=== PATIENT | male | born 1960 | race Caucasian/White ===

== ENCOUNTER → 2017-11-08 | Outpatient (CLI) | payer BC | END | disposition home or self-care (01) | LOC: PCVCIMAG 09:08 | DX: I08.1 Rheumatic disorders of both mitral and tricuspid valves (principal); I42.0 Dilated cardiomyopathy; Z79.899 Other long term (current) drug therapy | CPT/HCPCS: 36415; 93306 ==

== ENCOUNTER → 2018-03-22 | Outpatient (CLI) | payer BC ==
--- NOTE | 2018-03-22 22:29 | PCVCIMAG ---
EXAM: VENOUS DUPLEX LEFT UPPER EXTREMITY INDICATION: Arm pain and swelling. FINDINGS: Left arm: Occlusive thrombus in the basilic vein from the level of the elbow to the wrist. No thrombus in the cephalic, brachial, axillary, or subclavian veins. These veins show phasic flow. IMPRESSION: No evidence of deep venous thrombosis in the left upper extremity as detailed above. Occlusive thrombus is seen in the basilic vein from the level of the elbow through the wrist. Interval follow-up is suggested. LOC:OFFICE
== END | disposition home or self-care (01) ==
LOC: PCVCIMAG 16:26
PROVIDERS: ATTEND Internal Medicine Cardiovascular Disease
DX: M79.89 Other specified soft tissue disorders (principal); M79.602 Pain in left arm
CPT/HCPCS: 93971

== ENCOUNTER → 2018-08-15 | Outpatient (CLI) | payer BC ==
--- NOTE | 2018-08-15 10:04 | PCVCIMAG ---
APPROVED REPORT Study performed: 08/15/2018 07:37:26 EXAM: Comprehensive 2D, Doppler, and color-flow Echocardiogram Patient Location: Echo lab Status: routine BSA: 1.96 HR: 75 bpmBP: 106/64 mmHg Rhythm: NSR Other Information Study Quality: Adequate Indications Congestive Heart Failure Pulmonary Embolism severe non-ischemic cardiomyopathy 2D Dimensions IVSd: 10.02 (7-11mm) LVDd: 72.70 mm PWd: 9.45 (7-11mm) LVDs: 69.34 (25-40mm) Left Atrium: 47.27 (27-40mm) Aortic Root: 33.94 mm LV Single Plane 4CH: 20.61 % LV Single Plane 2CH: 19.96 % Biplane EF: 19.0 % Volumes Left Atrial Volume (Systole) Single Plane 4CH: 158.31 mLSingle Plane 2CH: 132.77 mL LA ESV Index: 79.00 mL/m2 Aortic Valve AoV Peak Moy.: 0.98 m/s AO Peak Gr.: 3.88 mmHgLVOT Max P.16 mmHg LVOT Max V: 0.54 m/s Mitral Valve E/A Ratio: 2.0 MV Decel. Time: 148.79 ms MV E Max Moy.: 0.78 m/s MV A Moy.: 0.39 m/s Pulmonary Valve PV Peak Moy.: 0.67 m/sPV Peak Gr.: 1.82 mmHg Pulmonary Vein P Vein S: 0.29 m/s P Vein D: 0.51 m/s P Vein S/D Ratio: 0.57 Tricuspid Valve TR Peak Moy.: 2.61 m/s TR Peak Gr.: 27.31 mmHg Left Ventricle Left ventricle is dilated. There is normal LV segmental wall motion. There is normal left ventricular wall thickness. Left ventricular ejection fraction is severely decreased globally. LVEF is 20%. Grade II - pseudonormal filling dynamics. Right Ventricle Right ventricle is mildly dilated. The right ventricular systolic function is normal. Atria Left atrium is severely dilated. Right atrium is mildly dilated. Aortic Valve The aortic valve is normal in structure. Trace aortic regurgitation. There is no aortic valvular stenosis. Mitral Valve The mitral valve is normal in structure. Moderately severe eccentric, posterior mitral regurgitation. No evidence of mitral valve stenosis. Tricuspid Valve The tricuspid valve is normal in structure. Mild tricuspid regurgitation with PAP of 37 mmHg. Pulmonic Valve The pulmonary valve is normal in structure. Mild to moderate pulmonic regurgitation. Great Vessels The aortic root is normal in size. IVC is dilated and collapses >50% with inspiration. Pericardium There is no pericardial effusion. There is no pleural effusion. <Conclusion> Left ventricle is dilated. There is normal left ventricular wall thickness. Left ventricular ejection fraction is severely decreased globally. Grade II - pseudonormal filling dynamics. Right ventricle is mildly dilated. Left atrium is severely dilated. Right atrium is mildly dilated. Trace aortic regurgitation. Moderately severe eccentric, posterior mitral regurgitation. Mild tricuspid regurgitation with PAP of 37 mmHg.
== END | disposition home or self-care (01) ==
LOC: PCVCIMAG 07:56
PROVIDERS: ATTEND Internal Medicine Cardiovascular Disease
DX: I08.1 Rheumatic disorders of both mitral and tricuspid valves (principal); R04.2 Hemoptysis; I42.9 Cardiomyopathy, unspecified; R91.8 Other nonspecific abnormal finding of lung field; R06.00 Dyspnea, unspecified; M79.602 Pain in left arm; M79.89 Other specified soft tissue disorders; I26.99 Other pulmonary embolism without acute cor pulmonale; I50.9 Heart failure, unspecified; Z86.711 Personal history of pulmonary embolism
CPT/HCPCS: 93306